=== PATIENT | female | born 1965 | race Caucasian/White ===

== ENCOUNTER → 2017-08-30 | Outpatient (CLI) | payer BC ==
[~2017-08-30] MED LIST: CALCIUM1 CAP PO; GLUCOPHAGE500 MG PO; IBUPROFEN200 M1 PO; MIRAPEX1 MG PO; Ritalin
== END ==
LOC: MC.RAD 12:45
DX: Z12.31 Encounter for screening mammogram for malignant neoplasm of breast (principal)

== ENCOUNTER → 2017-09-28 | Outpatient (CLI) | payer BC ==
[2017-09-28 09:29] LABS: BASO # 0.1 (0.0-0.2); BASO % 0.6 % (0.0-2.0); EOS # 0.1 (0.0-0.7); EOS % 1.3 % (0-4.0); GRAN # 6.7 (1.4-6.5); GRAN % 72.9 % (42.2-75.2); HEMATOCRIT 41.5 % (37.0-47.0); HEMOGLOBIN 13.4 g/dl (12.5-16.0); LYMPH # 1.7 (1.2-3.4); LYMPH % 18.4 % (20.0-51.0); MEAN CELL VOLUME 90 fl (80.0-100.0); MEAN CORPUSCULAR HEMOGLOBIN 29 pg (27.0-31.0); MEAN CORPUSCULAR HGB CONC 32 g/dl (33.0-37.0); MEAN PLATELET VOLUME 9.8 fl (7.4-10.4); MONO # 0.6 (0.1-0.6); MONO % 6.6 % (1.7-9.3); PLATELET COUNT 231 K/mm3 (130-400); REDCELL DISTRIBUTION WIDTH-CV 14.4 % (11.5-14.5)
[2017-09-28 09:44] LABS: BILIRUBIN,TOTAL 0.2 mg/dL (0.0-1.0); CALCIUM 9.4 mg/dL (8.4-10.2); CREATININE, serum 0.63 mg/dL (0.52-1.25); POTASSIUM 4.3 mmol/L (3.4-5.0); TOTAL PROTEIN 6.8 gm/dL (6.4-8.2)
== END ==
LOC: COL.RAD 09:03
PROVIDERS: Surgery
DX: D12.6 Benign neoplasm of colon, unspecified (principal)
CPT/HCPCS: Q9967

== ENCOUNTER → 2017-11-10 | Outpatient (CLI) | payer BC | LOC: COL.RAD 08:15 | DX: C18.9 Malignant neoplasm of colon, unspecified (principal); C77.2 Secondary and unspecified malignant neoplasm of intra-abdominal lymph nodes; J98.11 Atelectasis; Z98.890 Other specified postprocedural states | CPT/HCPCS: Q9967 ==

== ENCOUNTER 2018-02-22 11:00 | Outpatient (RCR) | payer BC ==
[2017-11-30 14:10] VITALS: BP 118/73; PULSE 87; TEMP 98.4
[2017-12-14 08:23] VITALS: BP 119/85; PULSE 78; TEMP 98.1
[2017-12-28 10:25] VITALS: BP 110/72; PULSE 84; TEMP 98.2
[2018-01-11 09:05] VITALS: BP 115/68; PULSE 88
[2018-01-25 09:12] VITALS: BP 130/80; PULSE 87
[2018-02-08 10:21] VITALS: BP 128/82; PULSE 91; TEMP 98.4
[~2018-02-22] VITALS: Ht 170.2 cm; Wt 107.0 kg
[~2018-02-22 11:00] MED LIST changes: +ADDERALL XR20 MG PO; +ASPIRIN 81M81 MG/TA2 PO; +COMPAZINE 110 MG/TAB PO; -GLUCOPHAGE500 MG PO; +GLUCOPHAGE500 MG/TAB PO; +MIRAPEX 1MG PO; -MIRAPEX1 MG PO; +PEPCID 20MG TAB20 MG PO; +ZOFRAN8 MG PO
[2018-02-22 12:05] VITALS: BP 121/57; PULSE 94; TEMP 98.5
== END 2018-02-28 | disposition home or self-care (01) ==
LOC: EUO
DX: C18.9 Malignant neoplasm of colon, unspecified (principal); C77.2 Secondary and unspecified malignant neoplasm of intra-abdominal lymph nodes; Z45.2 Encounter for adjustment and management of vascular access device; Z95.828 Presence of other vascular implants and grafts
CPT/HCPCS: J1644

== ENCOUNTER 2018-05-10 14:00 | Outpatient (RCR) | payer BC ==
[2018-03-08 13:10] VITALS: BP 113/65; PULSE 94; TEMP 98.4
[2018-03-22 11:58] VITALS: BP 146/87; PULSE 109; TEMP 98.6
[2018-04-05 14:01] VITALS: BP 146/76; PULSE 84; TEMP 98.2
[2018-04-19 13:24] VITALS: BP 116/68; PULSE 106; TEMP 98.1
[~2018-05-10] VITALS: Ht 170.2 cm; Wt 99.0 kg
[~2018-05-10 14:00] MED LIST changes: +NEURONTIN100 MG/CAP PO; +SENOKOT S 50 MG1 TAB PO
[2018-05-10 14:03] VITALS: BP 124/79; PULSE 86; TEMP 98
== END 2018-05-24 11:10 | disposition home or self-care (01) ==
LOC: EUO 14:00
DX: C18.9 Malignant neoplasm of colon, unspecified (principal); Z45.2 Encounter for adjustment and management of vascular access device; Z95.828 Presence of other vascular implants and grafts
CPT/HCPCS: J1644

== ENCOUNTER → 2018-10-01 | Outpatient (CLI) | payer BC | LOC: MC.RAD 14:00 | DX: Z12.31 Encounter for screening mammogram for malignant neoplasm of breast (principal) ==

== ENCOUNTER → 2018-10-02 | Outpatient (CLI) | payer BC | LOC: MC.RAD 14:34 | DX: Z12.31 Encounter for screening mammogram for malignant neoplasm of breast (principal) ==